=== PATIENT | female | born 1975 | race Caucasian/White ===

== ENCOUNTER 2018-12-07 16:18 | Emergency (ER) | payer MEDICARE, MEDICAID ==
[2018-12-07] MEDS ORDERED: Sodium Chloride 0.9% 1,000 ML IV ONE (16:32)
--- NOTE | 2018-12-07 16:37 | EDM.PDOC ---
ED HPI GENERAL MEDICAL PROBLEM - General Chief Complaint: Neck Problem Stated Complaint: NECK PAIN Time Seen by Provider: 12/07/18 16:19 Source of Information: Reports: Patient History Limitations: Reports: No Limitations - History of Present Illness INITIAL COMMENTS - FREE TEXT/NARRATIVE: HISTORY AND PHYSICAL: History of present illness: Patient is a 43-year-old female who presents to the emergency room with complaints of postsurgical neck pain. Patient reports that she had surgery to correct degenerative disc disease. She does have a postsurgical scar to the anterior neck. This was done on October 30, [address] Clark in [facility]. She states she had follow-up shortly after her surgery and was told that her "throat was healing right". Recently moved here to [place] and has not established care. She states she has pain with eating and swallowing. Pain with palpation of the anterior neck soft tissue. She is able to eat, drink and swallow her saliva. She denies any fever, chills, chest pain, shortness of breath or cough. Denies any GI or symptoms. Review of systems: As per history of present illness and below otherwise all systems reviewed and negative. Past medical history: As per history of present illness and as reviewed below otherwise noncontributory. Surgical history: As per history of present illness and as reviewed below otherwise noncontributory. Social history: See social history for further information Family history: As per history of present illness and as reviewed below otherwise noncontributory. Physical exam: General: Well-developed and well-nourished 43-year-old female. Alert and oriented. Nontoxic appearing and in no acute distress. HEENT: Atraumatic, normocephalic, pupils equal and reactive bilaterally, negative for conjunctival pallor or scleral icterus, mucous membranes moist, TMs normal bilaterally, throat clear with no swelling noted, neck supple, tenderness with palpation of the anterior neck, trachea midline. No drooling or trismus noted. No meningeal signs. No hot potato voice noted. Lungs: Clear to auscultation, breath sounds equal bilaterally, chest nontender. Heart: S1S2, regular rate and rhythm without overt murmur Abdomen: Soft, nondistended, nontender. Negative for masses or hepatosplenomegaly. Negative for costovertebral tenderness. Pelvis: Stable nontender. Genitourinary: Deferred. Rectal: Deferred. Skin: Well-healed scar to the right mid anterior neck. Intact, warm, dry. No lesions or rashes noted. Extremities: Atraumatic, negative for cords or calf pain. Neurovascular unremarkable. Neuro: Awake, alert, oriented. Cranial nerves II through XII unremarkable. Cerebellum unremarkable. Motor and sensory unremarkable throughout. Exam nonfocal. Notes: Lab work is unremarkable. CT of the soft tissue neck shows no acute findings: 1. Postoperative changes of anterior discectomy and fusion C6 and C7. Hardware appears well seated. 2. There is no evidence of significant soft tissue swelling, edema or inflammatory change in the surrounding prevertebral soft tissues. 3. No inflammation within the parapharyngeal fat pads or retropharyngeal space. Remaining deep soft tissues of the neck are normal. 4. No adenopathy. Her vital signs remain stable. I have witnessed her drinking fluids in the room. She is able to swallow. States she's been eating and drinking appropriately. Encouraged her to contact her surgeon who performed the surgery for recommendations on follow-up. She states it is unlikely she'll be able to go back to [place]. I did give her information on primary care who could then refer her to neurology or the appropriate specialty. Supportive care measures were reviewed and discussed. Voices understanding and is agreeable to plan of care. Denies any further questions or concerns at this time. Diagnostics: CBC, CMP, soft tissue neck CT Therapeutics: IV fluid, Toradol Prescription: Diclofenac Impression: Throat pain Plan: 1. Today's lab work and CT of the soft tissue neck showed no acute findings. 2. He may use Tylenol and/or ibuprofen as needed for pain management. 3. Please call your surgeon who performed the surgery for follow-up. Otherwise she may follow-up with a primary care provider who could then refer you to a neurosurgeon. Return to the ED as needed and as discussed. Definitive disposition and diagnosis as appropriate pending reevaluation and review of above. throat Pain Score (Numeric/FACES): 8 - Related Data Allergies Allergy/AdvReac Type Severity Reaction Status Date / Time aspirin Allergy Airway Verified 12/07/18 16:22 Tightness Penicillins Allergy Airway Verified 12/07/18 16:22 Tightness Home Meds: Home Meds . 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 Neurological History: Reports: None Psychiatric History: Reports: None Endocrine/Metabolic History: Reports: None Hematologic History: Reports: None Immunologic History: Reports: None Oncologic (Cancer) History: Reports: None Dermatologic History: Reports: None - Past Surgical History Head Surgeries/Procedures: Reports: None HEENT Surgical History: Reports: Other (See Below) Other HEENT Surgeries/Procedures: "throat surgery" Cardiovascular Surgical History: Reports: None Respiratory Surgical History: Reports: None GI Surgical History: Reports: None Female Surgical History: Reports: Hysterectomy Endocrine Surgical History: Reports: None Neurological Surgical History: Reports: None Musculoskeletal Surgical History: Reports: Other (See Below) Other Musculoskeletal Surgeries/Procedures:: titanium in neck, stage I C6-7 ACDF and Stage II L5-S1 ALIF Oncologic Surgical History: Reports: None Dermatological Surgical History: Reports: None Social & Family History - Family History Family Medical History: Noncontributory - Tobacco Use Smoking Status *Q: Current Some Day Smoker Years of Tobacco use: 33 Packs/Tins Daily: 0.1 - Caffeine Use Caffeine Use: Reports: Soda - Recreational Drug Use Recreational Drug Use: Yes Recreational Drug Type: Reports: Marijuana/Hashish ED ROS GENERAL - Review of Systems Review Of Systems: ROS reveals no pertinent complaints other than HPI. ED EXAM, GENERAL - Physical Exam Exam: See Below (See dictation) Course - Vital Signs Last Recorded V/S: Last Vital Signs Temp 97.0 F 12/07/18 16:21 Pulse 76 12/07/18 18:13 Resp 18 12/07/18 16:21 BP 118/65 12/07/18 18:13 Pulse Ox 97 12/07/18 18:13 - Orders/Labs/Meds Orders: Active Orders 24 hr Category Date Time Status Soft Tissue Neck w Cont [CT] Stat Exams 12/07/18 16:32 Taken Labs: Laboratory Tests 12/07/18 12/07/18 Range/Units 16:44 16:44 WBC 7.44 (4.0-11.0) K/uL RBC 4.47 (4.30-5.90) M/uL Hgb 13.5 (12.0-16.0) g/dL Hct 41.1 (36.0-46.0) % MCV 91.9 (80.0-98.0) fL MCH 30.2 (27.0-32.0) pg MCHC 32.8 (31.0-37.0) g/dL RDW Std Deviation 43.6 (28.0-62.0) fl RDW Coeff of Moose 13 (11.0-15.0) % Plt Count 226 (150-400) K/uL MPV 11.00 (7.40-12.00) fL Neut % (Auto) 48.2 (48.0-80.0) % Lymph % (Auto) 43.7 H (16.0-40.0) % [place] % (Auto) 4.4 (0.0-15.0) % Eos % (Auto) 3.4 (0.0-7.0) % Baso % (Auto) 0.3 (0.0-1.5) % Neut # (Auto) 3.6 (1.4-5.7) K/uL Lymph # (Auto) 3.3 H (0.6-2.4) K/uL [place] # (Auto) 0.3 (0.0-0.8) K/uL Eos # (Auto) 0.3 (0.0-0.7) K/uL Baso # (Auto) 0.0 (0.0-0.1) K/uL Nucleated RBC % 0.0 /100WBC Nucleated RBCs # 0 K/uL Sodium 143 (136-145) mmol/L Potassium 3.8 (3.5-5.1) mmol/L Chloride 105 (98-107) mmol/L Carbon Dioxide 28.0 (21.0-32.0) mmol/L BUN 15 (7.0-18.0) mg/dL Creatinine 0.9 (0.6-1.0) mg/dL Est Cr Clr Drug Dosing 68.16 mL/min Estimated GFR (MDRD) > 60.0 ml/min Glucose 97 (74-106) mg/dL Calcium 8.7 (8.5-10.1) mg/dL Total Bilirubin 0.4 (0.2-1.0) mg/dL AST 15 (15-37) IU/L ALT 21 (14-63) IU/L Alkaline Phosphatase 57 (46-116) U/L Total Protein 6.5 (6.4-8.2) g/dL Albumin 3.4 (3.4-5.0) g/dL Globulin 3.1 (2.6-4.0) g/dL Albumin/Globulin Ratio 1.1 (0.9-1.6) Meds: Medications Discontinued Medications Generic Name Dose Route Start Last Admin Trade Name Brent PRN Reason Stop Dose Admin Sodium Chloride 1,000 mls @ 999 mls/hr 12/07/18 16:32 12/07/18 16:46 Normal Saline IV 12/07/18 17:32 999 mls/hr STAT ONE Administration Iopamidol 80 ml 12/07/18 18:09 12/07/18 18:10 Isovue Multipack-370 (76%) IVPUSH 12/07/18 18:10 80 ml ONETIME STA Administration Departure - Departure Time of Disposition: 18:52 Disposition: Home, Self-Care 01 Clinical Impression: Throat pain in adult - Discharge Information Referrals: PCP,Unknown [Primary Care Provider] - Forms: ED Department Discharge Additional Instructions: The following information is given to patients seen in the emergency department who are being discharged to home. This information is to outline your options for follow-up care. We provide all patients seen in our emergency department with a follow-up referral. The need for follow-up, as well as the timing and circumstances, are variable depending upon the specifics of your emergency department visit. If you don't have a primary care physician on staff, we will provide you with a referral. We always advise you to contact your personal physician following an emergency department visit to inform them of the circumstance of the visit and for follow-up with them and/or the need for any referrals to a consulting specialist. The emergency department will also refer you to a specialist when appropriate. This referral assures that you have the opportunity for follow-up care with a specialist. All of these measure are taken in an effort to provide you with optimal care, which includes your follow-up. Under all circumstances we always encourage you to contact your private physician who remains a resource for coordinating your care. When calling for follow-up care, please make the office aware that this follow-up is from your recent emergency room visit. If for any reason you are refused follow-up, please contact the [facility] Department at and asked to speak to the emergency department charge nurse. [facility] [address] [place] [address] [address] 1. Today's lab work and CT of the soft tissue neck showed no acute findings. 2. He may use Tylenol and/or ibuprofen as needed for pain management. 3. Please call your surgeon who performed the surgery for follow-up. Otherwise she may follow-up with a primary care provider who could then refer you to a neurosurgeon. Return to the ED as needed and as discussed. - My Orders Last 24 Hours: My Active Orders 12/07/18 16:32 Soft Tissue Neck w Cont [CT] Stat - Assessment/Plan Last 24 Hours: My Active Orders 12/07/18 16:32 Soft Tissue Neck w Cont [CT] Stat
[2018-12-07 17:32] LABS: CHLORIDE,CL 105 mmol/L (98-107); SODIUM,NA 143 mmol/L (136-145)
[2018-12-07] MEDS ORDERED: Iopamidol 755 MG/ML 500 ML Multipack Bottle IVPUSH STA (18:09)
--- NOTE | 2018-12-07 18:52 | CT ---
INDICATION: Difficulty swallowing after surgery on 10/30/2018. TECHNIQUE: Axial CT of soft tissues in neck with IV contrast. Coronal and sagittal images. FINDINGS: Postoperative changes of anterior discectomy and fusion C6-7. No evidence of significant edema or inflammatory change in the surrounding prevertebral soft tissues. Normal bilateral parotid and submandibular glands. Normal thyroid gland. No inflammation within the parapharyngeal fat pads are retropharyngeal space. Normal thickness of the epiglottis. Normal clivus with symmetric vocal cords. No compromise of the airway. Lung apices are clear. Visualized paranasal sinuses and mastoid air cells are clear. Cervical spondylosis. Congenital fusion of C2 and C3. No significant elongation of the styloid processes or abnormal elongation of the superior thyroid cornu. IMPRESSION: 1. Postoperative changes of anterior discectomy and fusion C6 and C7. Hardware appears well seated. 2. There is no evidence of significant soft tissue swelling, edema or inflammatory change in the surrounding prevertebral soft tissues. 3. No inflammation within the parapharyngeal fat pads or retropharyngeal space. Remaining deep soft tissues of the neck are normal. 4. No adenopathy. Please note that all CT scans at this facility use dose modulation, iterative reconstruction, and/or weight-based dosing when appropriate to reduce radiation dose to as low as reasonably achievable. Dictated by Jakob Mcnally MD @ Dec 07 2018 6:47PM Signed by Dr. Jakob Mcnally @ Dec 07 2018 6:51PM
== END 2018-12-07 19:07 | disposition home or self-care (01) ==
LOC: MW.ED 16:18
DX: R07.0 Pain in throat (principal); F17.210 Nicotine dependence, cigarettes, uncomplicated; Z88.0 Allergy status to penicillin
CPT/HCPCS: 36415; 70491; 80053; 85025; 96360; 99284; J7040; Q9967